=== PATIENT | male | born 1990 | race Hispanic/Latino ===

== ENCOUNTER 2019-11-12 01:26 | Emergency (ER) | payer OTHER ==
[2019-11-12] MEDS ORDERED: TETANUS/DIPHTHERIA TOXOID [ADULT] 0.5 ML VIAL IM ONE (02:37)
[2019-11-12] MEDS ORDERED: LEVOFLOXACIN 500 MG TABLET ONE (03:17)
[2019-11-12] MEDS ORDERED: IBUPROFEN 600 MG TABLET ONE (03:17)
[2019-11-12] MEDS ORDERED: ACETAMINOPHEN EXTRA STRENGTH 500 MG TABLET ONE (03:18)
== END 2019-11-12 03:54 | disposition home or self-care (01) ==
LOC: EDH 01:26
DX: S91.032A Puncture wound without foreign body, left ankle, initial encounter (principal); T63.511A Toxic effect of contact with stingray, accidental (unintentional), initial encounter; R20.8 Other disturbances of skin sensation; Y92.89 Other specified places as the place of occurrence of the external cause; Y93.89 Activity, other specified; Y99.8 Other external cause status
CPT/HCPCS: 73610; 90471; 90714

== ENCOUNTER 2019-12-27 22:08 | Emergency (ER) | payer OTHER ==
[2019-12-27] MEDS ORDERED: SODIUM CHLORIDE 0.9% 1000ML 1,000 ML IV ONE (22:58)
[2019-12-27 23:16] LABS: BASOPHILS % (AUTO) 0.5 % (0.0-5.0); EOSINOPHILS % (AUTO) 0.1 % (0.0-8.0); HEMATOCRIT 47.5 % (42-54); LYMPHOCYTES % (AUTO) 14.5 % (21.0-51.0); MEAN CORPUSCULAR HEMOGLOBIN 29.9 pg (27.0-33.0); MEAN CORPUSCULAR HGB CONC 35.2 g/dL (32.0-36.0); MEAN CORPUSCULAR VOLUME 85.1 fL (79-99); MONOCYTES % (AUTO) 8.4 % (3.0-13.0); NEUTROPHILS % (AUTO) 76.1 % (40.0-77.0); PLATELET COUNT (AUTO) 219 K/uL (130-400); RED BLOOD CELL COUNT(AUTO) 5.58 MIL/uL (4.50-6.20); RED CELL DISTRIBUTION WIDTH 12.3 % (11.0-15.5); WHITE BLOOD COUNT (AUTO) 8.3 K/uL (4.8-10.8)
[2019-12-27 23:20] LABS: APPEARANCE,URINE Clear (CLEAR); BILIRUBIN,URINE Negative (NEGATIVE); COLOR,URINE Dark Yellow (YELLOW); GLUCOSE, URINE (UA) 250 mg/dL (NEGATIVE); KETONES,URINE Trace mg/dL (NEGATIVE); LEUKOCYTE ESTERASE ,URINE Negative (NEGATIVE); NITRATE,URINE Negative (NEGATIVE); OCCULT BLOOD,URINE Nonhemolyzed Trace (NEGATIVE); PROTEIN,URINE POS 1+ mg/dL (NEGATIVE)
[2019-12-27 23:33] LABS: CARBON DIOXIDE 26 mmol/L (21-32); CHLORIDE 100 mmol/L (101-111); CREATININE 1.2 mg/dL (0.5-1.5); GLOMERULAR FILTR. RATE CALC 75 mL/min (>60); GLUCOSE,RANDOM 119 mg/dL (70-105); POTASSIUM 3.7 mmol/L (3.5-5.1); SODIUM SERUM 137 mmol/L (136-145); UREA NITROGEN, BLOOD 10 mg/dL (7-18)
[2019-12-27 23:37] LABS: ALANINE AMINOTRANSFERASE 185 U/L (12-78); ALBUMIN 4.7 g/dL (3.5-5.0); AMPHET/METH SCREEN,URINE NEGATIVE (NEGATIVE); ASPARTATE AMINOTRANSFERASE 98 U/L (10-37); BARBITURATE SCREEN, URINE NEGATIVE (NEGATIVE); BENZODIAZEPINES SCREEN,URINE NEGATIVE (NEGATIVE); BILIRUBIN,TOTAL 0.9 mg/dL (0.2-1.0); CANNABINOID SCREEN,URINE NEGATIVE (NEGATIVE); COCAINE SCREEN,URINE NEGATIVE (NEGATIVE); CREATINE KINASE, TOTAL 135 U/L (21-232); LIPASE 67 U/L (114-286); OPIATE SCREEN,URINE NEGATIVE (NEGATIVE); PHENCYCLIDINE SCREEN,URINE NEGATIVE (NEGATIVE)
[2019-12-27 23:47] LABS: ALCOHOL, BLOOD < 3 mg/dL (0-10)
[2019-12-27 23:59] LABS: AMORPHOUS SEDIMENT,UR Few /LPF (None Seen); BACTERIA,URINE Few /HPF (None Seen); MUCUS,URINE Moderate LPF (None Seen)
[2019-12-28] MEDS ORDERED: METOPROLOL TARTRATE 1 MG/ML 5ML VIAL IV ONE (00:23)
== END 2019-12-28 01:38 | disposition home or self-care (01) ==
LOC: EDH 22:08
DX: R03.0 Elevated blood-pressure reading, without diagnosis of hypertension (principal); E86.0 Dehydration
CPT/HCPCS: 36415; 80053; 80305; 81001; 82550; 83690; 85025; 93005; 96361; 96374; 99285; G0480; J3490; J7030

== ENCOUNTER 2023-09-22 23:04 | Emergency (ER) | payer OTHER ==
[~2023-09-22] VITALS: Ht 172.7 cm; Wt 91.2 kg
[2023-09-22 23:27] LABS: BASOPHILS # (AUTO) 0.04 K/uL (0.00-0.20); BASOPHILS % (AUTO) 0.7 % (0.0-5.0); EOSINOPHILS # (AUTO) 0.09 K/uL (0.00-0.70); EOSINOPHILS % (AUTO) 1.5 % (0.0-8.0); IMMATURE GRANULOCYTE ABSOLUTE 0.02 K/uL (0-1); LYMPHOCYTES # (AUTO) 2.4 K/uL (1.0-4.8); LYMPHOCYTES % (AUTO) 39.6 % (21.0-51.0); MEAN CORPUSCULAR HEMOGLOBIN 29.9 pg (27.0-33.0); MEAN CORPUSCULAR HGB CONC 34.6 g/dL (32.0-36.0); MEAN CORPUSCULAR VOLUME 86.5 fL (79-99); MONOCYTES # (AUTO) 0.5 K/uL (0.1-1.0); MONOCYTES % (AUTO) 8.8 % (3.0-13.0); NEUTROPHILS # (AUTO) 2.9 K/uL (1.8-7.7); NEUTROPHILS % (AUTO) 49.1 % (40.0-77.0); PLATELET COUNT (AUTO) 200 K/uL (130-400); RED BLOOD CELL COUNT(AUTO) 5.55 MIL/uL (4.50-6.20); RED CELL DISTRIBUTION WIDTH 12.3 % (11.0-15.5)
[2023-09-22 23:41] LABS: POTASSIUM 3.7 mmol/L (3.5-5.1)
[2023-09-22 23:45] LABS: ALBUMIN 4.3 g/dL (3.5-5.0); BILIRUBIN,TOTAL 0.6 mg/dL (0.2-1.0); MAGNESIUM 2.4 mg/dL (1.80-2.40)
[2023-09-23 01:32] VITALS: BP 138/91; PULSE 79; RESP 16; O2SAT 97
== END 2023-09-23 01:37 | disposition home or self-care (01) ==
LOC: EDH 23:04
DX: F41.9 Anxiety disorder, unspecified (principal); I10 Essential (primary) hypertension
CPT/HCPCS: 36415; 71045; 80053; 82550; 83735; 84484; 85025; 93005

== ENCOUNTER 2025-06-26 21:21 | Emergency (ER) | payer SELFPAY ==
[~2025-06-26] VITALS: Ht 172.7 cm; Wt 83.0 kg
[2025-06-26 21:52] LABS: IMMATURE GRANULOCYTE ABSOLUTE 0.02 K/uL (0-1); NUCLEATED RED BLOOD CELLS 0.0 % (0.0-0.19); PLATELET COUNT (AUTO) 212 K/uL (130-400); RED BLOOD CELL COUNT(AUTO) 5.19 MIL/uL (4.50-6.20); RED CELL DISTRIBUTION WIDTH 12.9 % (11.0-15.5); WHITE BLOOD COUNT (AUTO) 5.2 K/uL (4.8-10.8)
[2025-06-26 21:59] LABS: CREATININE 0.9 mg/dL (0.5-1.3); GLOMERULAR FILTR. RATE CALC 114.0 mL/min (>90); GLUCOSE,RANDOM 98.0 mg/dL (70-105); SODIUM SERUM 136.0 mmol/L (136-145); UREA NITROGEN, BLOOD 19.0 mg/dL (7-18)
[2025-06-26 22:12] LABS: CREATINE KINASE, TOTAL 74.0 U/L (21-232)
--- NOTE | 2025-06-26 23:04 | HMCIMG ---
EXAM: CR Chest, 1 view CLINICAL HISTORY: Chest pain. COMPARISON: Chest radiograph dated 09/22/2023. FINDINGS: The lungs show no infiltrates or other acute findings. No pleural effusion or pneumothorax. The cardiomediastinal silhouette is within normal limits. No acute osseous abnormality. IMPRESSION: No acute cardiopulmonary process is evident. Compared to the prior study, there is no significant interval change. /Trail
--- NOTE | 2025-06-26 23:18 | ERN ---
General Chief Complaint: Chest Pain Stated Complaint: C/O CP X 1 WK Time Seen by MD: 21:27 Time Seen by Midlevel: 21:27 Source: patient History of Present Illness Initial Comments 34-year-old male with no significant past medical history presenting to the emergency department for evaluation of chest pain that has been intermittent in nature for one week. Chest pain is worse with deep inspiration. The patient denies any past medical history. Denies taking any medications on a daily basis. Denies any drug or alcohol abuse. On arrival he denies any other symptoms. Allergies: Coded Allergies: No Known Drug Allergies (Unverified Allergy, Unknown, 11/12/19) Past Medical History Past Medical History: No Pertinent History Past Surgical History: None Family History Family History: HTN Social History Social History: Negative, Lives with family ROS Dictation CONSTITUTIONAL: Negative except for HPI HEAD/FACE: Negative except for HPI EENT: Negative except for HPI RESPIRATORY: Negative except for HPI GASTROINTESTINAL/ABDOMINAL: Negative except for HPI GENITOURINARY: Negative except for HPI MUSCULOSKELETAL: Negative except for HPI INTEGUMENTARY: Negative except for HPI NEUROLOGICAL/PSYCH: Negative except for HPI HEMATOLOGIC/LYMPHATIC: Negative except for HPI All Systems Negative, Except as noted above. 13 point review of systems assessed and all negative except for above. Physical Exam Physical Exam Dictation Vital Signs reviewed General Appearance: Alert, oriented x 3, no acute distress, well developed, nourished. Head and Face: non-traumatic. Eyes: PERRL, pink conjunctivas, eyelid no trauma, anterior chamber with arcus senilis. Ears: Pinnas intact and no signs of trauma or erythema ear canals clear and no discharge TM no erythema Nose: No discharge, no bleeding. Oropharynx: Mouth normal, tongue pink, pharynx clear,no erythema, tonsils no exudates, no abscesses noted, mucous membrane moist Neck: Supple, non-tender, no thyromegaly, no masses, no JVD, no bruits Breast:Deferred Chest:No tenderness, no crepitus, no paradoxical movement, no retractions Lungs:Clear, well-ventilated, symmetric, no rales, no wheezing, no rhonchi, no stridor, good breath sounds bilaterally Heart: Regular rate, regular rhythm, no murmur, no gallops Vascular: no peripheral edema, Abdomen: Soft, positive bowel sounds, nondistended, no guarding, nontender, no rebound, no masses no hepatomegaly, no splenomegaly, no Burger's s ign, no hernias. Rectal: Deferred Genital: Deferred Neurological: Normal speech, motor function intact, sensory function intact Musculoskeletal: Neck nontender, full range of motion, back nontender, full range of motion, Extremities: nontender, full range of motion Skin: Color pink, dry, no turgor, no rash, no lacerations, no abrasions, no contusions. Lymphatic: Deferred Results Laboratory and Microbiology Lab and Micro Result Laboratory Tests Test 06/26/25 21:43 White Blood Count 5.2 K/uL (4.8-10.8) Red Blood Count 5.19 MIL/uL (4.50-6.20) Hemoglobin 16.2 g/dL (14.0-18.0) Hematocrit 45.7 % (42-54) Mean Corpuscular Volume 88.1 fL (79-99) Mean Corpuscular Hemoglobin 31.2 pg (27.0-33.0) Mean Corpuscular Hemoglobin Concent 35.4 g/dL (32.0-36.0) Red Cell Distribution Width 12.9 % (11.0-15.5) Platelet Count 212 K/uL (130-400) Mean Platelet Volume 9.6 fL (7.5-10.5) Immature Granulocyte % (Auto) 0.4 % (0-1) Neutrophils (%) (Auto) 50.0 % (40.0-77.0) Lymphocytes (%) (Auto) 37.7 % (21.0-51.0) Monocytes (%) (Auto) 10.5 % (3.0-13.0) Eosinophils (%) (Auto) 0.8 % (0.0-8.0) Basophils (%) (Auto) 0.6 % (0.0-5.0) Neutrophils # (Auto) 2.6 K/uL (1.8-7.7) Lymphocytes # (Auto) 2.0 K/uL (1.0-4.8) Monocytes # (Auto) 0.6 K/uL (0.1-1.0) Eosinophils # (Auto) 0.04 K/uL (0.00-0.70) Basophils # (Auto) 0.03 K/uL (0.00-0.20) Absolute Immature Granulocyte (auto 0.02 K/uL (0-1) Nucleated Red Blood Cells 0.0 % (0.0-0.19) Sodium Level 136 mmol/L (136-145) Potassium Level 4.1 mmol/L (3.5-5.1) Chloride Level 100 mmol/L (101-111) L Carbon Dioxide Level 31 mmol/L (21-32) Blood Urea Nitrogen 19 mg/dL (7-18) H Creatinine 0.9 mg/dL (0.5-1.3) Glomerular Filtration Rate Calc 114 mL/min (>90) Random Glucose 98 mg/dL (70-105) Total Calcium 9.6 mg/dL (8.5-10.1) Total Creatine Kinase 74 U/L (21-232) # Troponin I High Sensitivity 7 ng/L (4-75) Labs Reviewed?: Yes MDM MDM: 34-year-old male with no significant past medical history presenting to the emergency department for evaluation of chest pain that has been intermittent in nature for one week. Chest pain is worse with deep inspiration. The patient denies any past medical history. Denies taking any medications on a daily basis. Denies any drug or alcohol abuse. On arrival he denies any other symptoms. Workup included EKG which does not show acute ischemic changes. Initial troponin was negative. CBC and chemistries are unremarkable. Chest x-ray shows no acute cardiopulmonary finding. Patient remained hemodynamically stable, afebrile, and nontoxic throughout the ED. his pain characteristics, duration, and normal diagnostic evaluation make acute coronary syndrome less likely. Given his low risk features negative cardiac and pulmonary workup and reassuring clinical exam patient is deemed appropriate for discharge with strict return precautions. Differential diagnosis: Acute coronary syndrome, pneumonia, pneumothorax, anxiety There are no social concerns with this patient. Prescription drug management Prescriptions will include: None Medical management and examination interpretation discussions were had by me with other qualified healthcare professionals as indicated for the patient's care. ED Course Orders Procedure Category Date Status Time Vital Signs Per CPOE 06/26/25 Transmitted Routine 21:26 Chest 1vw RAD 06/26/25 Resulted 21:26 12 Lead Ekg Tracing- EKG 06/26/25 Logged Technical 21:26 Oxygen By Nc/Pulse Ox CPOE 06/26/25 Transmitted 21:26 Maintain Iv CPOE 06/26/25 Transmitted 21:26 Iv Insertion CPOE 06/26/25 Transmitted 21:26 Cardiac Monitoring CPOE 06/26/25 Transmitted 21:26 Pulse Oximetry With CPOE 06/26/25 Transmitted Vs And Prn 21:26 Cbc With Differential LAB 06/26/25 Complete 21:26 Activity: Br W/Brp CPOE 06/26/25 Transmitted With Assist 21:26 Creatine Kinase, Total LAB 06/26/25 Complete 21:26 Troponin I High LAB 06/26/25 Complete Sensitivity 21:26 Urinalysis Profile LAB 06/26/25 Logged 21:26 Basic Metabolic Panel LAB 06/26/25 Complete 21: Vital Signs Date Time Temp Pulse Resp B/P (MAP) Pulse Ox O2 Delivery O2 Flow Rate FiO2 06/26/25 22:09 69 18 149/94 96 Room Air* 0 06/26/25 21:47 98.2 82 20 151/102 96 Room Air* 0 06/26/25 21:24 98.1 87 20 169/111 99 Room Air HEART Score Response (Comments) Value History: Low suspicion (0) 0 EKG: Normal 0 Age: < 45yrs (0) 0 Risk Factors: No known risk factors (0) 0 Initial Troponin: Normal limit (0) 0 HEART Score Risk: Low Risk for MACE (1-3) Total 0 DX & DISP Disposition: Discharge Departure Impression: Primary Impression: Non-cardiac chest pain Condition: Stable Additional Instructions: You were evaluated in the emergency department for chest pain. Your evaluation included blood work included troponin, an EKG, and a chest x-ray. All of the tests were normal. At this time you are considered low risk for a serious cause of chest pain. You are stable to go home. Please schedule an appointment with the primary care provider or clinic within the next 3-5 days for re-evaluation. Even though your testing today was reassuring, it is important to follow up to ensure your symptoms continue to improve. You do not need new medications at this time. You may take Tylenol or Motrin if your chest discomfort is bothersome, unless you previously been told not to take these. Resume normal activities as tolerated. If any activity worsens her pain. In rest. Come back to the emergency department if you develop worsening or severe chest pain, pressure, or heaviness. Chest pain can have many causes, including musculoskeletal pain, inflammation, anxiety, or other non life-threatening conditions. However, new or worsening pain always deserves prompted tension. Referrals: ALANNAH DAMON MD (PCP) Time of Disposition: 23:14 I have reviewed the case, and I agree with, Diagnosis and Plan I performed the substantive portion of the visit. I have reviewed and personally made and approve the management plan that is documented in the note by myself or the UMESH. I acknowledge for responsibility for the patient's management plan. DORIAN CONNOLLY Jun 26, 2025 23:18
[2025-06-26 23:37] LABS: APPEARANCE,URINE CLEAR (CLEAR); GLUCOSE, URINE (UA) 300 mg/dL (NEGATIVE); LEUKOCYTE ESTERASE ,URINE NEGATIVE Leu/uL (NEGATIVE); NITRATE,URINE NEGATIVE (NEGATIVE); OCCULT BLOOD,URINE NEGATIVE (NEGATIVE)
[2025-06-26 23:38] LABS: ADD UA MICROSCOPIC YES
[2025-06-26 23:42] VITALS: BP 145/89; PULSE 66; RESP 18; TEMP 98; O2SAT 99
--- NOTE | 2025-06-27 02:38 | EKG ---
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
== END 2025-06-26 23:43 | disposition home or self-care (01) ==
LOC: EDH 21:21
DX: R07.89 Other chest pain (principal)
CPT/HCPCS: 36415; 71045; 80048; 81001; 82550; 84484; 85025; 93005; 99285